=== PATIENT | male | born 1980 | race Caucasian/White ===

== ENCOUNTER 2020-12-16 09:31 | Emergency (ER) | payer BC ==
[~2020-12-16] VITALS: Ht 167.6 cm; Wt 122.7 kg
[~2020-12-16 09:31] MED LIST: ALBUTEROL SULF8.5 GM INH; AZITHROMYCIN500 MG PO; DIFLUCAN100 MG PO; GLUCOPHAGE1000 MG PO
[2020-12-16 09:42] VITALS: BP 175/94; Ht 167.6 cm; Wt 122.7 kg
[2020-12-16 10:01] LABS: BASOPHILS 0.7 % (0-2); EOSINOPHILS 1.8 % (0-7); HEMATOCRIT 50.3 % (42.0-54.0); HEMOGLOBIN 17.3 g/dL (13.5-17.5); LYMPHOCYTES 21.8 % (15-50); MCH 32.7 pg (26.0-34.0); MCHC 34.4 g/dL (31.0-37.0); MCV 94.9 fL (80.0-100.0); MEAN PLATELET VOLUME 8.3 fL (7.4-10.4); MONOCYTES 11.1 % (2-11); NEUTROPHILS 64.6 % (40-80); RDW 13.1 % (11.5-14.5); WBC 9.7 10x3/uL (4.8-10.8)
[2020-12-16 10:02] LABS: PLATELET COUNT 135 10x3/uL (130-400)
[2020-12-16 10:18] LABS: ALBUMIN 3.6 g/dL (3.4-5.0); ALKALINE PHOSPHATASE 91 U/L (30-120); ALT (SGPT) 39 U/L (10-68); AMYLASE - SERUM 21 U/L (25-115); BILIRUBIN - TOTAL 1.22 mg/dL (0.2-1.3); CALC OSMOLALITY 286 mosm/kg (275-300); CARBON DIOXIDE 26.7 mmol/L (21.0-32.0); CHLORIDE - SERUM 97 mmol/L (98-107); CREATININE - SERUM 1.1 mg/dL (0.6-1.3); LIPASE 50 U/L (73-393); MAGNESIUM - SERUM 1.8 mg/dL (1.8-2.4); POTASSIUM - SERUM 4.5 mmol/L (3.5-5.1); SODIUM 132 mmol/L (136-145); UREA NITROGEN 13 mg/dL (7-18); eGFR NON AFRICAN AMERICAN 78 mL/min (90-120)
[2020-12-16 10:29] LABS: GLUCOSE 490 mg/dL (74-106)
[2020-12-16 10:51] LABS: BILIRUBIN NEGATIVE (NEGATIVE); KETONE NEGATIVE (NEGATIVE); NITRITE NEGATIVE (NEGATIVE); UROBILINOGEN NORMAL mg/dL (< 2)
== END 2020-12-16 12:20 | disposition home or self-care (01) ==
LOC: D.ER 09:31
PROVIDERS: Emergency Medicine; Family Medicine
DX: E11.00 Type 2 diabetes mellitus with hyperosmolarity without nonketotic hyperglycemic-hyperosmolar coma (NKHHC) (principal); E86.0 Dehydration; Z79.84 Long term (current) use of oral hypoglycemic drugs